=== PATIENT | female | born 1965 | race Caucasian/White ===

== ENCOUNTER 2025-03-24 12:37 | Outpatient (CLI) | payer BC | END 2025-03-24 12:38 | disposition home or self-care (01) | LOC: BICULT 12:37 | PROVIDERS: ATTEND Internal Medicine | DX: E04.1 Nontoxic single thyroid nodule (principal); E03.9 Hypothyroidism, unspecified | CPT/HCPCS: 76536 ==

== ENCOUNTER 2025-06-18 15:27 | Outpatient (CLI) | payer BC | END 2025-06-18 15:28 | disposition home or self-care (01) | LOC: SCSRAD 15:27 | PROVIDERS: ATTEND Orthopaedic Surgery | DX: M54.2 Cervicalgia (principal); M40.50 Lordosis, unspecified, site unspecified; Z98.1 Arthrodesis status | CPT/HCPCS: 72040 ==

== ENCOUNTER 2025-07-13 12:05 | Day surgery (SDC) | payer BC ==
[2025-07-13] MEDS ORDERED: Sodium Bicarbonate 2.5 MEQ/5 ML SDV ONE (12:53)
[2025-07-13] MEDS ORDERED: Lidocaine 1% PF 5 ML VIAL ONE (12:53)
== END 2025-07-13 14:15 | disposition home or self-care (01) ==
LOC: ULT 12:05
PROVIDERS: ATTEND Otolaryngology Plastic Surgery within the Head & Neck
PROC: 0G9G3ZX Drainage of Left Thyroid Gland Lobe, Percutaneous Approach, Diagnostic (ICD-10-PCS; principal; 2025-07-13)
DX: E04.1 Nontoxic single thyroid nodule (principal); J38.01 Paralysis of vocal cords and larynx, unilateral; I10 Essential (primary) hypertension; E03.9 Hypothyroidism, unspecified; Z79.890 Hormone replacement therapy; Z79.899 Other long term (current) drug therapy
CPT/HCPCS: 10005; 88173